=== PATIENT | female | born 1985 | race Asian ===

== ENCOUNTER 2017-01-25 14:30 | Emergency (ER) | payer SELFPAY ==
[2017-01-25] MEDS ORDERED: HYDROCODONE/ACETAMINOPHEN 5-325 MG TABLET PO ONE (15:02)
[2017-01-25] MEDS ORDERED: ONDANSETRON 4 MG TAB.RAPDIS SL ONE (15:02)
--- NOTE | 2017-01-25 15:03 | ER Document Report ---
ED Medical Screen (RME) - General Chief Complaint: Abdominal Pain Stated Complaint: STOMACH PAIN Time Seen by Provider: 01/25/17 14:36 Mode of Arrival: Ambulatory Information source: Patient TRAVEL OUTSIDE OF THE [place] IN LAST 30 DAYS: No - HPI Patient complains to provider of: Left pelvic pain Onset: Last week Notes: 01/25/17 15:02 Patient is a 31-year-old female presenting to the emergency room complaining of worsening left-sided pelvic pain over the past week, she reports she had intercourse with her night, she felt as though he moved her IUD , she developed some spotting after that and increasing pain, this morning she had some nausea and vomiting as well - Related Data Allergies/Adverse Reactions: fish derived [Fish derived] Allergy (Intermediate, Verified 01/25/17 14:35) Hives Past Medical History - Social History Chew tobacco use (# tins/day): No Frequency of alcohol use: None Drug Abuse: None Renal/ Medical History: Denies: Hx Peritoneal Dialysis - Immunizations Hx Diphtheria, Pertussis, Tetanus Vaccination: Yes - 03/2014 History of Influenza Vaccine for 01/2017 - 06/2017 Season: No Physical Exam - Vital signs Vitals: Temp Pulse Resp BP Pulse Ox 98.6 F 111 H 14 128/74 H 100 01/25/17 14:35 01/25/17 14:35 01/25/17 14:35 01/25/17 14:35 01/25/17 14:35 Course - Vital Signs Vital signs: Temp Pulse Resp BP Pulse Ox 98.6 F 111 H 14 128/74 H 100 01/25/17 14:35 01/25/17 14:35 01/25/17 14:35 01/25/17 14:35 01/25/17 14:35
[2017-01-25 15:05] LABS: APPEARANCE,URINE CLEAR; BILIRUBIN,URINE NEGATIVE (NEGATIVE); GLUCOSE, URINE NEGATIVE (NEGATIVE); KETONES,URINE NEGATIVE (NEGATIVE); LEUKOCYTE ESTERASE,URINE SMALL (NEGATIVE); NITRITE,URINE NEGATIVE (NEGATIVE); PROTEIN,URINE NEGATIVE (NEGATIVE); URINE SPECIFIC GRAVITY 1.014; UROBILINOGEN,URINE NEGATIVE mg/dL (<2.0)
[2017-01-25 15:37] LABS: ABSOLUTE EOSINOPHILS # (AUTO) 0.1 10^3/uL (0.0-0.6); ABSOLUTE LYMPHOCYTES (AUTO) 1.8 10^3/uL (0.5-4.7); ABSOLUTE MONOCYTES (AUTO) 0.8 10^3/uL (0.1-1.4); BASOPHILS % (AUTO) 0.2 % (0-2); EOSINOPHILS % (AUTO) 0.4 % (0-6); HEMATOCRIT 41.7 % (36.0-47.0); HGB HCT DIFFERENCE 0.3; LYMPHOCYTES % (AUTO) 11.5 % (13-45); MEAN CORPUSCULAR HEMOGLOBIN 28.6 pg (27.0-33.4); MEAN CORPUSCULAR HGB CONC 33.5 g/dL (32.0-36.0); MEAN CORPUSCULAR VOLUME 85 fl (80-97); RED BLOOD COUNT 4.89 10^6/uL (3.72-5.28); RED CELL DISTRIBUTION WIDTH 13.2 % (11.5-14.0); SEGMENTED NEUTROPHILS % (AUTO) 82.9 % (42-78); WHITE BLOOD COUNT 15.7 10^3/uL (4.0-10.5)
[2017-01-25 15:42] LABS: APPEARANCE,URINE SLIGHTLY-CLOUDY; BILIRUBIN,URINE NEGATIVE (NEGATIVE); GLUCOSE, URINE NEGATIVE (NEGATIVE); KETONES,URINE NEGATIVE (NEGATIVE); LEUKOCYTE ESTERASE,URINE LARGE (NEGATIVE); NITRITE,URINE NEGATIVE (NEGATIVE); PROTEIN,URINE NEGATIVE (NEGATIVE); URINE SPECIFIC GRAVITY 1.017; UROBILINOGEN,URINE NEGATIVE mg/dL (<2.0)
[2017-01-25 15:58] LABS: ALANINE AMINOTRANSFERASE 26 U/L (9-52); ALBUMIN 5.1 g/dL (3.5-5.0); ALKALINE PHOSPHATASE 69 U/L (38-126); ANION GAP 12 (5-19); ASPARTATE AMINO TRANSFERASE 16 U/L (14-36); BILIRUBIN,DIRECT 0.4 mg/dL (0.0-0.4); BILIRUBIN,TOTAL 0.9 mg/dL (0.2-1.3); BLOOD UREA NITROGEN 8 mg/dL (7-20); CALCIUM 9.6 mg/dL (8.4-10.2); CARBON DIOXIDE 24 mmol/L (22-30); CHLORIDE 103 mmol/L (98-107); CREATININE RESULT 0.52 mg/dL (0.52-1.25); GLUCOSE 90 mg/dL (75-110); LIPASE 22.9 U/L (23-300); POTASSIUM 3.8 mmol/L (3.6-5.0); SODIUM 139.4 mmol/L (137-145); TOTAL PROTEIN 8.3 g/dL (6.3-8.2)
--- NOTE | 2017-01-25 16:53 | RADIOLOGY REPORT (SQ) ---
EXAM DESCRIPTION: U/S NON OB PEL W/DOPPLER COMPLETED DATE/TIME: 01/25/2017 4:24 pm REASON FOR STUDY: leftt pelvic pain COMPARISON: None. TECHNIQUE: Dynamic and static grayscale images acquired of the pelvis via transabdominal approach an d recorded on PACS. Additional selected color Doppler and spectral images recorded. LIMITATIONS: None. FINDINGS: UTERUS: Contour normal. No mass. ENDOMETRIAL STRIPE: No focal or generalized thickening. No masses. There is an IUD present, however it has migrated from the uterine fundal endometrium down to the lowe r uterine segment and cervix. There are air bubbles in the endometrial canal. CERVIX: No nabothian cysts. RIGHT OVARY: No abnormal masses. 3.2 x 2.3 x 2.6 cm in size. RIGHT OVARY DOPPLER: Normal arterial vascular flow without evidence for torsion. LEFT OVARY: Not visualized due to adnexal gas LEFT OVARY DOPPLER: Not performed. FREE FLUID: None noted. OTHER: No other significant finding. IMPRESSION: Inferior migration of the IUD, now along the lower uterine segment and cervix, with air bubbles in the fundal endometrium. TECHNICAL DOCUMENTATION: JOB ID: [id number]- All Rights Reserved
--- NOTE | 2017-01-25 17:09 | ER Document Report ---
ED General - General Chief Complaint: Abdominal Pain Stated Complaint: STOMACH PAIN Time Seen by Provider: 01/25/17 14:36 Mode of Arrival: Ambulatory TRAVEL OUTSIDE OF THE [place] IN LAST 30 DAYS: No - HPI Patient complains to provider of: BREEZYQ abdominal pain Onset: Other - 2 days Onset/Duration: Gradual Quality of pain: Achy, Dull Severity: Moderate Pain Level: 3 Associated symptoms: Nausea, Vomiting, Other Exacerbated by: Other Similar symptoms previously: No Recently seen / treated by doctor: No - Related Data Allergies/Adverse Reactions: fish derived [Fish derived] Allergy (Intermediate, Verified 01/25/17 14:35) Hives Past Medical History - General Information source: Patient - Social History Smoking Status: Current Every Day Smoker Chew tobacco use (# tins/day): No Frequency of alcohol use: None Drug Abuse: None Family History: Reviewed & Not Pertinent - Medical History Medical History: Negative - Past Medical History Cardiac Medical History: Reports: None Pulmonary Medical History: Reports: None Neurological Medical History: Reports: None Endocrine Medical History: Reports: None Renal/ Medical History: Reports: None. Denies: Hx Ectopic , Hx Kidney Stones, Hx Ovarian Cysts, Hx Peritoneal Dialysis, Hx Pelvic Inflammatory Disease, Hx Renal Insufficiency Malignancy Medical History: Reports: None GI Medical History: Reports: None Skin Medical History: Reports None Infectious Medical History: Reports: None Surgical Hx: Negative - Immunizations Hx Diphtheria, Pertussis, Tetanus Vaccination: Yes - 03/2014 Review of Systems - Review of Systems Constitutional: No symptoms reported EENT: No symptoms reported Cardiovascular: No symptoms reported Respiratory: No symptoms reported Gastrointestinal: No symptoms reported, Abdominal pain, Nausea, Vomiting, Constipation Genitourinary: No symptoms reported, Dysuria Female Genitourinary: No symptoms reported, Vaginal bleeding, Painful intercourse Musculoskeletal: No symptoms reported Skin: No symptoms reported Hematologic/Lymphatic: No symptoms reported Neurological/Psychological: No symptoms reported Physical Exam - Vital signs Vitals: Temp Pulse Resp BP Pulse Ox 98.6 F 111 H 14 128/74 H 100 01/25/17 14:35 01/25/17 14:35 01/25/17 14:35 01/25/17 14:35 01/25/17 14:35 Interpretation: Normal, Tachycardic - General General appearance: Appears well, Alert - HEENT Head: Normocephalic, Atraumatic Eyes: Normal Pupils: PERRL - Respiratory Respiratory status: No respiratory distress Chest status: Nontender Breath sounds: Normal Chest palpation: Normal - Cardiovascular Rhythm: Regular Heart sounds: Normal auscultation Murmur: No - Abdominal Inspection: Normal Distension: No distension Bowel sounds: Normal Tenderness: Nontender, Tender, Other - Mild tenderness to palpation in the left lower quadrant Organomegaly: No organomegaly - Rectal Tenderness: No Stool: Heme negative Hemorrhoids: None - Genitourinary External exam: Normal Speculum exam: Cervix closed Vaginal bleeding: Mild Bimanuel exam: Normal. No: Cervical motion tender, Bladder/Urethral tender, Adnexal mass - Back Back: Normal, Nontender - Extremities General upper extremity: Normal inspection, Nontender, Normal color, Normal ROM , Normal temperature General lower extremity: Normal inspection, Nontender, Normal color, Normal ROM , Normal temperature, Normal weight bearing. No: Kayleen's sign - Neurological Neuro grossly intact: Yes Cognition: Normal Orientation: AAOx4 Eber Coma Scale Eye Opening: Spontaneous Eber Coma Scale Verbal: Oriented Eber Coma Scale Motor: Obeys Commands Eber Coma Scale Total: 15 Speech: Normal Motor strength normal: LUE, RUE, LLE, RLE Sensory: Normal - Psychological Associated symptoms: Normal affect, Normal mood - Skin Skin Temperature: Warm Skin Moisture: Dry Skin Color: Normal Course - Re-evaluation Re-evalutation: 01/25/17 18:08 Patient with chief complaint of some pelvic discomfort during intercourse. Thinks possibly her IUD could be dislodged or potentially infected. Followed by local [facility]. Has also had some intermittent constipation over the last couple of days. Had some mild left lower quadrant tenderness but no guarding or rebound. Negative rectal exam. Pelvic exam showed some mild vaginal bleeding. A swab was obtained for wet prep as well as GC and chlamydia. Urinalysis results showed some elevated WBCs and some red blood cells. HCG test was negative. Pelvic ultrasound showed IUD and possible abnormal position. At this time I discussed with patient about the need for close follow -up. Was unable to visualize string to manipulate or remove the IUD. This was explained to the patient. Patient does have a slightly elevated WBC count so decided to begin treatment at this time for possible infection. Strict instructions were given with regards to follow-up in 12-24 hours if symptoms are getting worse or no better. Patient also instructed that she would need to follow-up with an [facility] to have the IUD removed. Patient verbalized understanding of these instructions. Will discharge her with antibiotics. Have instructed her that we will call her with her results on the testing. I have also instructed her that it is possible that the health department may remove IUDs. - Vital Signs Vital signs: Temp Pulse Resp BP Pulse Ox 98.6 F 111 H 14 128/74 H 100 01/25/17 14:35 01/25/17 14:35 01/25/17 14:35 01/25/17 14:35 01/25/17 14:35 - Laboratory Result Diagrams: 01/25/17 15:15 01/25/17 15:15 Laboratory results interpreted by me: 01/25/17 01/25/17 01/25/17 14:30 15:10 15:15 WBC 15.7 H Seg Neutrophils % 82.9 H Lymphocytes % 11.5 L Absolute Neutrophils 13.0 H Total Protein Albumin Lipase Urine Blood LARGE H LARGE H Ur Leukocyte Esterase SMALL H LARGE H 01/25/17 15:15 WBC Seg Neutrophils % Lymphocytes % Absolute Neutrophils Total Protein 8.3 H Albumin 5.1 H Lipase 22.9 L Urine Blood Ur Leukocyte Esterase - Diagnostic Test Radiology reviewed: Reports reviewed Discharge - Discharge Clinical Impression: Pelvic pain Condition: Stable Disposition: HOME, SELF-CARE Additional Instructions: Pelvic Pain There are many causes of pain in the pelvic area. The cause could be the tubes, ovaries, uterus, intestines, appendix, pelvic muscles and connective tissue, or the urinary tract. The cause of your pelvic pain is not clear. However, it seems safe to treat you outside the hospital. If the pain sounds like a temporary problem, we sometimes wait to see if it goes away. Other patients may need additional tests, such as pelvic ultrasound or cultures. Conditions may change. Call us or come back for reexamination if any problems occur, such as: (1) Pain that becomes more severe, steady, or becomes concentrated in one specific area. Also, pain that is more severe with movement or coughing. (2) Vomiting that persists or becomes more frequent. (3) Blood in the vomitus, urine, or bowel movements. Blood in the stool may have a tarry or black appearance. (4) Shaking chills or fever greater than 100 degrees. (5) The abdomen becomes more distended or swollen. (6) Bowel movements cease. (7) Heavy vaginal bleeding. Please return in 24 hours or sooner for recheck if symptoms persist or not getting better or you are unable to be seen by her primary care provider. Continue with medications as prescribed. Prescriptions: Doxycycline Hyclate 100 mg PO BID #14 capsule Metronidazole [Flagyl 500 mg Tablet] 500 mg PO TID #21 tablet Ondansetron HCl [Zofran 4 mg Tablet] 1 tab PO Q4H PRN #10 tablet PRN Reason: Referrals: WEN COCHRAN MD [Primary Care Provider] - Follow up as needed
[2017-01-25] MEDS ORDERED: LIDOCAINE 1% INJ-PF (10 MG/ML) 30 ML SDV INJ ONE (17:49)
[2017-01-25] MEDS ORDERED: DOXYCYCLINE HYCLATE 100 MG TABLET PO ONE (17:49)
[2017-01-25] MEDS ORDERED: METRONIDAZOLE 500 MG TABLET PO ONE (17:49)
[2017-01-25] MEDS ORDERED: CEFTRIAXONE INJ 250 MG VIAL IM ONE (17:49)
[2017-01-25 18:29] VITALS: BP 111/65
[2017-01-25 19:33] LABS: CHLAM PCR DETECTED (NOT DETECT)
== END 2017-01-25 18:29 | disposition home or self-care (01) ==
LOC: ER 14:30
DX: K59.00 Constipation, unspecified (principal); N94.10 Unspecified dyspareunia; R10.2 Pelvic and perineal pain; N93.9 Abnormal uterine and vaginal bleeding, unspecified; R10.814 Left lower quadrant abdominal tenderness; R11.2 Nausea with vomiting, unspecified; D72.829 Elevated white blood cell count, unspecified; F17.200 Nicotine dependence, unspecified, uncomplicated; Z97.5 Presence of (intrauterine) contraceptive device; Z91.013 Allergy to seafood
CPT/HCPCS: 99284; 96372; 36415; 87086; 87210; 83690; 84703; 85025; 80053; 81001; 87491; 87591; 76856; 93976; S0119; J3490; J0696